=== PATIENT | female | born 1960 | race Caucasian/White ===

== ENCOUNTER 2019-02-09 16:48 | Emergency (ER) | payer OTHER ==
[2019-02-09 16:54] VITALS: BP 144/89
[2019-02-09] MEDS ORDERED: DIPH/PERTUSS(ACELL)/TETANUS VAC/PF 0.5 ML SYR (>=10YO) IM ONE (17:55)
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
== END 2019-02-09 19:00 | disposition home or self-care (01) ==
LOC: ER 16:48
DX: S29.012A Strain of muscle and tendon of back wall of thorax, initial encounter (principal); S40.811A Abrasion of right upper arm, initial encounter; V49.50XA Passenger injured in collision with unspecified motor vehicles in traffic accident, initial encounter; W22.12XA Striking against or struck by front passenger side automobile airbag, initial encounter; Z88.8 Allergy status to other drugs, medicaments and biological substances
CPT/HCPCS: 99283; 90471; 73060; 72070; 90715; L3650